=== PATIENT | female | born 1965 | race Caucasian/White ===

== ENCOUNTER → 2016-08-17 | Outpatient (CLI) | payer OTHER ==
[~2016-08-17] MED LIST: DLN100 PO; GADAVIST IV PRN; HYDR25TA4 PO; LAMO100T16 PO
--- NOTE | 2016-08-17 09:11 | DIAGNOSTIC IMAGING REPORT ---
MRI OF THE BRAIN WITHOUT AND WITH IV CONTRAST CLINICAL HISTORY: Seizure. Cord plexus papilloma. Cavernous hemangioma. MIGRAINE. COMPARISON STUDY: 03/09/2014 TECHNIQUE: MRI of the brain was performed from the vertex to the skull base utilizing various T1 and T2 weighted sequences. Following the IV administration of 10 mL of Gadavist contrast, additional enhanced images were obtained. FINDINGS: Sagittal T1, axial diffusion, proton density and T2 weighted axial, coronal FLAIR, and pre and post axial T1-weighted images were acquired. These were supplemented with post gadolinium coronal T1 weighted images. There is a stable 21 mm nonenhancing mass within the right lateral ventricle. There is a second smaller lesion with thin the anterior horn the right lateral ventricle. This contains a small rim of hemosiderin. There is no pathologic enhancement. Given the relative stability I would favor these lesions representing intraventricular cavernoma's. There is a focus of hemosiderin medial to the left occipital horn. This previously represented an area of acute hemorrhage.. This likely represents a cavernoma which is undergone prior hemorrhage. Axial diffusion-weighted images reveal no evidence of acute or subacute infarction. There is no evidence of ventricular dilatation. Proton density T2-weighted and FLAIR images reveal scattered foci of increased T2 signal within the white matter, likely on a small vessel basis. Postcontrast images reveal large bilateral developmental venous anomalies. IMPRESSION: 1. Expected evolutionary changes of the previously identified hemorrhage adjacent to the left occipital horn 2. Large bilateral developmental venous anomalies 3. 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 There are 2 intraventricular masses within the left lateral ventricle. 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 Electronically signed by: Sandeep Garduno M.D. 08/17/2016 9:10 AM Dictated Date/Time: 08/17/2016 8:53 AM
== END | disposition home or self-care (01) ==
LOC: C.MRIBC 07:50
PROVIDERS: ATTEND Psychiatry & Neurology Neurology
DX: D33.2 Benign neoplasm of brain, unspecified (principal); G40.909 Epilepsy, unspecified, not intractable, without status epilepticus; D18.01 Hemangioma of skin and subcutaneous tissue

== ENCOUNTER → 2016-08-19 | Outpatient (CLI) | payer OTHER ==
[~2016-08-19] MED LIST changes: -GADAVIST IV PRN
--- NOTE | 2016-08-22 12:03 | EEG Procedure Note ---
EEG Procedure Note Date of Service Aug 19, 2016. Start / End Times Start Time: 2:05 PM End Time: 2:27 PM Referring Physician Maury Villafuerte History This is a 50-year-old female with a reported history of epilepsy. EEG for further evaluation of epilepsy. Pertinent home medications: [facility] Home Medication List Scheduled Phenytoin Sodium (Dilantin), 200 MG PO BID Phenytoin Sodium (Dilantin), 1 TAB PO HS Description This is a 21 electrode EEG with a single channel dedicated to limited EKG. The electrodes were placed in accordance with the International 10-20 system. At the start of the recording the patient was an awake state. Background was well organized and composed of symmetric low to moderate amplitude mix of alpha and beta frequencies. There was a well formed symmetric low to moderate amplitude posterior dominant rhythm of 10-11 Hz that was reactive to eye opening and closure. Hyperventilation and photic stimulation at various frequencies did not produce any abnormalities. Drowsiness was indicated by loss of muscle artifact and slowing of the background rhythm. There was no sleep transients. Interpretation This is a normal awake and drowsy routine EEG There was no electrographic seizures or epileptiform discharges Clinical Correlation A normal EEG does not rule out epilepsy if there is a strong clinical suspicion.
== END | disposition home or self-care (01) ==
LOC: C.NEUR 13:47
PROVIDERS: ATTEND Psychiatry & Neurology Neurology
DX: G40.909 Epilepsy, unspecified, not intractable, without status epilepticus (principal)

== ENCOUNTER 2016-12-19 12:42 | Emergency (ER) | payer OTHER ==
[~2016-12-19] VITALS: Ht 170.2 cm; Wt 122.8 kg
[~2016-12-19 12:42] MED LIST changes: -HYDR25TA4 PO; -LAMO100T16 PO
[2016-12-19 12:53] VITALS: TEMP 36.4; Ht 170.2 cm; Wt 122.8 kg
[2016-12-19] MEDS ORDERED: SODIUM CHLORIDE 0.9% 1000ML 1,000 ML IV STA (13:01)
[2016-12-19] MEDS ORDERED: OPTIRAY 320 IV PRN (13:15)
[2016-12-19] MEDS ORDERED: LAMO100T16 PO (13:18)
[2016-12-19] MEDS ORDERED: HYDR25TA4 PO (13:18)
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
[2016-12-19 13:36] LABS: ISTAT CREATININE 1.1 mg/dl (0.6-1.3); ISTAT HEMOGLOBIN 13.6 g/dl (12.0-16.0); ISTAT IONIZED CALCIUM 1.1 mmol/l (1.12-1.32)
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
[2016-12-19 13:44] LABS: BASO % 0.1 %; BASO ABS # 0.02 K/uL (0-0.2); COMPLETE YES; EOS % 0.4 %; IG% 0.7 %; LYMPH % 20.5 %; LYMPH ABS # 3.08 K/uL (1.2-3.4); MEAN CELL VOLUME 85.7 fL (80-100); MEAN CORPUSCULAR HEMOGLOBIN 28.7 pg (25-34); MEAN CORPUSCULAR HGB CONC 33.5 g/dl (32-36); MEAN PLATELET VOLUME 8.8 fL (7.4-10.4); MONO % 4.5 %; NEUT % 73.8 %; PLATELET COUNT 281 K/uL (130-400); RED BLOOD COUNT 4.67 M/uL (4.2-5.4); WHITE BLOOD COUNT 15.04 K/uL (4.8-10.8)
[2016-12-19 13:55] LABS: PARTIAL THROMBOPLASTIN RATIO 0.9; PROTHROMBIN TIME (PATIENT) 10.4 SECONDS (9.0-12.0)
[2016-12-19 14:05] LABS: ALT/SGPT 36 U/L (12-78); AST/SGOT 40 U/L (15-37); BLOOD UREA NITROGEN 17 mg/dl (7-18); BUN/CREATININE RATIO 15.8 (10-20); CALCIUM 8.8 mg/dl (8.5-10.1); CARBON DIOXIDE 29 mmol/L (21-32); CHLORIDE 104 mmol/L (98-107); GLUCOSE 116 mg/dl (70-99); POTASSIUM 3.2 mmol/L (3.5-5.1); SODIUM 143 mmol/L (136-145)
[2016-12-19 14:10] LABS: ALKALINE PHOSPHATASE 75 U/L (45-117)
[2016-12-19 14:11] LABS: PREG INTERNAL NEGATIVE QC NEG CLEAR BACKGROUND; PREG INTERNAL POSITIVE QC POS CONTROL LINE
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
[2016-12-19 14:34] VITALS: O2SAT 94
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
[2016-12-19] MEDS ORDERED: LIDOCAINE/EPINEPHRINE 1% 20 ML VIAL INFIL ONE (14:45)
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
--- NOTE | 2016-12-19 15:22 | EMERGENCY ROOM VISIT NOTE ---
ED Visit Note I was asked by Dr. Santos to repair a 1 cm laceration to the inside of the upper lip. Using sterile technique the wound was cleaned with Betadine. The area was sterilely draped. 2 ml of 1% buffered lidocaine with epinephrine was used to anesthetize the skin. Once the patient was numb, the wound was copiously irrigated under pressure with sterile saline. The wound was explored and there were no deep structures such as tendons, bone, or ligaments present. The laceration was repaired using 3 simple interrupted 6-0 fast absorbing sutures with the wound edges being well approximated. The patient tolerated the procedure well. The bleeding stopped.
[2016-12-19] MEDS ORDERED: MoRPHine SULFATE 4 MG/ML 1 ML CARP\\VIAL IV STA (15:25)
[2016-12-19] MEDS ORDERED: ONDANSETRON INJ 2 MG/ML 2 ML VIAL IV STA (15:25)
[2016-12-19 15:44] LABS: URINE APPEARANCE CLEAR (CLEAR); URINE BILIRUBIN NEG (NEG); URINE COLOR YELLOW; URINE EPITHELIAL CELL AUTO 20-30 /lpf (0-5); URINE NITRITE NEG (NEG); URINE PH 7.5 (4.5-7.5); URINE SPECIFIC GRAVITY 1.031 (1.000-1.030); UROBILINOGEN NEG (NEG)
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
[2016-12-19 15:45] LABS: MANUAL MICROSCOPIC REQUIRED? NO; REVIEW REQ? NO
[2016-12-19 16:04] VITALS: BP 132/96; PULSE 96; O2SAT 94
== END 2016-12-19 16:05 | disposition short-term general hospital (02) ==
LOC: EDBD 12:42 → C.EDA 12:43
DX: S62.617A Displaced fracture of proximal phalanx of left little finger, initial encounter for closed fracture (principal); S01.511A Laceration without foreign body of lip, initial encounter; S22.20XA Unspecified fracture of sternum, initial encounter for closed fracture; S22.43XA Multiple fractures of ribs, bilateral, initial encounter for closed fracture; S32.018A Other fracture of first lumbar vertebra, initial encounter for closed fracture; S32.028A Other fracture of second lumbar vertebra, initial encounter for closed fracture; S30.1XXA Contusion of abdominal wall, initial encounter; V89.2XXA Person injured in unspecified motor-vehicle accident, traffic, initial encounter; Y92.488 Other paved roadways as the place of occurrence of the external cause; Y99.0 Civilian activity done for income or pay; S01.512A Laceration without foreign body of oral cavity, initial encounter; S70.211A Abrasion, right hip, initial encounter; S70.212A Abrasion, left hip, initial encounter

== ENCOUNTER → 2017-01-19 | Outpatient (CLI) | payer OTHER ==
[~2017-01-19] MED LIST changes: -DLN100 PO; +HYDR25TA4 PO; +LAMO100T16 PO
--- NOTE | 2017-01-19 13:23 | DIAGNOSTIC IMAGING REPORT ---
SOFT TISS HEAD/NECK-THYROID HISTORY: 51-year-old female presents with thyroid nodule. COMPARISON: CT chest 12/19/2016. TECHNIQUE: Multiple real-time sonographic images of the thyroid were obtained assessing grayscale appearance and color flow. FINDINGS: Right lobe: The right lobe of the thyroid measures 5.1 x 2.1 x 1.7 cm. Left lobe: The left lobe of the thyroid measures 6.1 x 2.6 x 2.1 cm. Isthmus: 0.83 cm. Parenchyma: Diffusely heterogeneous and slightly hypervascular. Nodules: Within the mid right thyroid there is an ill-defined hypoechoic nodule or focally heterogeneous parenchyma, 0.5 x 0.4 cm. There is a large dominant isoechoic ovoid well marginated nodule of the mid inferior left thyroid, 2.4 x 3.3 x 2.4 cm. A second large predominantly isoechoic and somewhat poorly marginated nodule seen within the left thyroid as well, 3.6 x 1.9 x 2.4 cm. IMPRESSION: 1. 2 large isoechoic solid nodules of the left thyroid are present measuring up to 3.6 cm. Further evaluation with ultrasound-guided FNA is recommended. 2. Subcentimeter nodule/focal heterogeneous parenchyma of the right thyroid lobe does not meet criteria for biopsy. 3. Diffusely heterogeneous and hypervascular thyroid parenchyma. Electronically signed by: Jose Manuel Pascal 01/19/2017 1:22 PM Dictated Date/Time: 01/19/2017 1:15 PM
== END | disposition home or self-care (01) ==
LOC: C.ULTR 12:33
PROVIDERS: ATTEND Family Medicine
DX: E04.2 Nontoxic multinodular goiter (principal)

== ENCOUNTER → 2017-02-04 | Outpatient (CLI) | payer OTHER ==
[2017-02-04 17:44] LABS: BLOOD UREA NITROGEN 13 mg/dl (7-18); BUN/CREATININE RATIO 11.9 (10-20); CALCIUM 9.3 mg/dl (8.5-10.1); CARBON DIOXIDE 30 mmol/L (21-32); CHLORIDE 101 mmol/L (98-107); GLUCOSE 82 mg/dl (70-99); SODIUM 138 mmol/L (136-145)
== END | disposition home or self-care (01) ==
LOC: C.LAB1850 16:10
PROVIDERS: ATTEND Family Medicine
DX: I10 Essential (primary) hypertension (principal); E04.1 Nontoxic single thyroid nodule

== ENCOUNTER → 2017-02-10 | Outpatient (CLI) | payer OTHER ==
--- NOTE | 2017-02-10 13:45 | Discharge Instructions ---
Discharge Instructions Procedure Procedure Date: Feb 10, 2017. Reason for visit: L Thyroid Nodule. Discharge Discharge Date: Feb 10, 2017. Discharge Diagnosis: s/p FNA of two thyroid nodules Instructions Activity Recommendations: No limitations Return to School/Work: no limitations Recommended Home Diet: No Limitations Provider Instructions: ACTIVITY RECOMMENDATIONS: * Rest today. * Resume regular activity in one day. MEDICATIONS: * May take Tylenol or Ibuprofen as needed for pain. DIET: * Resume previous diet. SPECIAL CARE INSTRUCTIONS: Call your doctor if: * Temperature above 101 degrees F. * Pain not relieved by pain medicine ordered. * Increased drainage or redness from incision. * Notify your doctor with any questions or concerns. Call your doctor or go to the nearest Emergency Department if you experience: * Increased chest pain or shortness of breath. FOLLOW UP VISIT: Follow-up with Referring Physician as scheduled. Allergies Coded Allergies: Cephradine (Verified Allergy, Severe, ANAPHYLAXIS, 03/09/14) [place] Recommendations: Call your doctor if: * Temperature above 101 degrees * Pain not relieved by pain medicine ordered * There is increased drainage or redness from any incision * You have any unanswered questions or concerns. Your Doctors Instructions noted above were prepared by provider Vj Cody. Patient Signature Section: Patient Instructions Signature Page Paty Partida Patient (or Guardian) Signature/Date: I have read and understand the instructions given to me by my caregivers. Caregiver/RN/Doctor Signature/Date: The above-named patient and/or guardian has received patient instructions on this date. + Original Patient Signature Page (only) stays with chart. Please make copy for patient.
--- NOTE | 2017-02-10 13:59 | DIAGNOSTIC IMAGING REPORT ---
ULTRASOUND GUIDED FINE NEEDLE ASPIRATION OF 2 LEFT LOBE THYROID NODULES CLINICAL HISTORY: Thyroid nodules. COMPARISON STUDY: Thyroid ultrasound January 19, 2017. PROCEDURE: The procedure, risks and benefits were discussed with the patient including the risk of bleeding, infection and injury to adjacent structures. The patient agreed to the procedure and informed written consent was obtained. The procedure was performed by Dr. Cody following a timeout. Sonography demonstrated 2 similar appearing left lobe nodules each measuring approximately 3.5 cm. 1 located within the midpole and the other within the lower pole. Skin of the left neck was prepped and draped in sterile fashion and local anesthesia was achieved with 1% lidocaine. Under direct ultrasound guidance, 2 25-gauge fine needle aspirations of the 3.5 cm left lower pole nodule were performed and deemed preliminarily adequate by pathology. A total of 6 passes was performed in the left mid pole nodule. Preliminarily, sampling was inadequate by pathology. No additional samples were obtained given 6 passes. The patient tolerated the procedure well and no immediate complications were evident. IMPRESSION: Ultrasound guided fine needle aspiration of 2 similar appearing left lobe thyroid nodules. Preliminarily, biopsy of the lower pole nodule was adequate. Sampling of the mid pole nodule was preliminarily inadequate despite 6 passes. This mid pole nodule is low suspicion and likely benign. Await final pathology results. If inadequate, a follow-up ultrasound in one year could be obtained. Electronically signed by: Vj Cody M.D. 02/10/2017 1:57 PM Dictated Date/Time: 02/10/2017 1:53 PM
== END | disposition home or self-care (01) ==
LOC: C.ULTRBC 09:03
PROVIDERS: ATTEND Family Medicine
DX: E04.1 Nontoxic single thyroid nodule (principal)

== ENCOUNTER → 2017-03-08 | Outpatient (CLI) | payer OTHER ==
--- NOTE | 2017-03-09 15:59 | MAMMOGRAPHY REPORT ---
BILATERAL DIGITAL DIAGNOSTIC MAMMOGRAM TOMOSYNTHESIS WITH CAD AND TARGETED LEFT ULTRASOUND: 03/08/2017 CLINICAL HISTORY: 51-year-old woman found to have a possible left breast cyst incidentally identified on a chest CT. Also baseline mammogram. TECHNIQUE: Bilateral breast tomosynthesis in addition to standard 2D mammography was performed. Spot magnification CC and ML views of each breast were also obtained. Current study was also evaluated w ith a Computer Aided Detection (CAD) system. COMPARISON: No prior exams were available for comparison. BREAST COMPOSITION: The tissue of both breasts is heterogeneously dense, which may obscure small mas ses. FINDINGS: There is a well-circumscribed oval 3.1 x 3.7 x 2.8 cm mass in the 12:00 middle one third of the left breast. This correlates in size, shape and location as the mass identified on recent CT an d further evaluation with ultrasound was performed. Several groupings of punctate microcalcifications were identified bilaterally for which additional sp ot magnification views were obtained in both breasts. The microcalcifications are loosely grouped, s cattered and punctate in morphology. There are noted in the lateral and medial posterior right breas t, and left upper outer quadrant. Some of the microcalcifications in the superior anterior right lakshmi ast on the spot magnification ML view demonstrate layering, suggesting benign milk of calcium. All o f the groupings They most likely represent benign fibrocystic changes but given that no prior exams a re available to assess stability, short interval follow-up diagnostic mammograms including spot magni fication views are recommended in 6 months. No focal asymmetry or focal area of architectural distortion was seen bilaterally. Targeted ultrasound was performed in the 12:00 left breast. There is an oval parallel circumscribed anechoic benign simple cyst measuring 3.5 x 1.6 x 3.3 mm, that correlates with the circumscribed mamm ographic mass and also the CT finding. This is a benign cyst and no further workup is needed at this time. Incidental note is made of a second anechoic cyst superficial to the first measuring 7.7 x 3. 9 x 6.5 mm. IMPRESSION: ACR-BI-RADS CATEGORY 3: PROBABLY BENIGN, TARGETED ULTRASOUND ACR-BI-RADS CATEGORY 3: PRO BABLY BENIGN 1. The 3 cm mass in the left 12:[address] seen on recent CT correlates with a benign anechoic simple cyst. 2. There are scattered groupings of punctate microcalcifications in both breasts, that have benign a ppearance and most likely represent benign fibrocystic changes. Given that no prior mammograms are a vailable to document stability, short interval follow-up bilateral diagnostic mammograms including sp ot magnification views is recommended to ensure stability in 6 months. These results and recommendations were discussed with the patient at the time of the exam. Approximately 10% of breast cancers are not detected with mammography. A negative mammographic report should not delay biopsy if a clinically suggestive mass is present. Aaliyah Roman M.D. ay/:03/08/2017 14:57:53 [employer] Officer: Loren VALLE)([place]), [facility] letter sent: Follow Up Recommended 3 BI-RADS Code: ACR-BI-RADS Category 3: Probably Benign Ultrasound BI-RADS: ACR-BI-RADS Category 3: Pr obably Benign
== END | disposition home or self-care (01) ==
LOC: C.MAMM 10:08
PROVIDERS: ATTEND Family Medicine
DX: N60.02 Solitary cyst of left breast (principal); R92.0 Mammographic microcalcification found on diagnostic imaging of breast

== ENCOUNTER → 2017-03-11 | Outpatient (CLI) | payer OTHER ==
[2017-03-11 15:34] LABS: BLOOD UREA NITROGEN 12 mg/dl (7-18); BUN/CREATININE RATIO 10.8 (10-20); CALCIUM 9.3 mg/dl (8.5-10.1); CARBON DIOXIDE 29 mmol/L (21-32); CHLORIDE 102 mmol/L (98-107); GLUCOSE 89 mg/dl (70-99); SODIUM 139 mmol/L (136-145)
== END | disposition home or self-care (01) ==
LOC: C.LAB1850 14:01
PROVIDERS: ATTEND Family Medicine
DX: E87.6 Hypokalemia (principal)